=== PATIENT | male | born 1975 | race Two or more races ===

== ENCOUNTER 2019-05-03 20:57 | Emergency (ER) | payer MEDICAID, OTHER ==
[~2019-05-03] VITALS: Ht 182.9 cm; Wt 85.7 kg
--- NOTE | 2019-05-03 21:25 | NUR ---
MIRELA HERNANDEZ WITH A C/O CHRONIC BACK PAIN. 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 DR BARRIENTOS IS AT THE BEDSIDE. PT IS ON THE MONITOR AND CONTINUOUS PULSE OX.
--- NOTE | 2019-05-03 21:55 | NUR ---
DR BARRIENTOS IS AT THE BEDSIDE SPEAKING TO THE PT.
--- NOTE | 2019-05-03 22:00 | NUR ---
PT REMOVED THE BP CUFF AND PULSE OX. PT DOES NOT WANT THEM ON AT THIS TIME.
--- NOTE | 2019-05-03 22:50 | NUR ---
PT WANTS TO LEAVE AMA. PER PT, PT'S MOTHER IS PICKING PT UP.
--- NOTE | 2019-05-03 23:11 | NUR ---
DR BARRIENTOS IS AT THE BEDSIDE SPEAKING TO THE PT. PT AGREED TO RETURN TO THE FACILITY VIA AMBULANCE. PT REC'D ALL D/C PAPERWORD AND RX.
--- NOTE | 2019-05-03 23:20 | NUR ---
PT WAS PLACED ON A BEDPAN AND GIVEN TOILET PAPER.
--- NOTE | 2019-05-03 23:33 | NUR ---
PER ALCIDES, ETA FOR AMBULNACE 1HR
--- NOTE | 2019-05-03 23:39 | NUR ---
BEDPAN WAS REMOVED AND PT WAS CLEANED. NEW CHUX WAS APPLIED AND PT COVERED WITH A SHEET.
--- NOTE | 2019-05-04 00:38 | NUR ---
PT APPEARS TO BE RESTING COMFORTABLY WITH NO S/S OF PAIN OR DISTRESS.
--- NOTE | 2019-05-04 00:49 | NUR ---
CALLING [facility] TO LET THEM KNOW THAT THE PT IS RETURNING. FACILITY PUT ME ON HOLD AND THEN HUNG UP ON ME.
--- NOTE | 2019-05-04 00:53 | NUR ---
CHARGE NURSE CALLED THE FACILITY TO SPEAK TO THE NURSE. CHARGE NURSE SPOKE TO
--- NOTE | 2019-05-04 00:54 | NUR ---
CALLED [facility], SPOKE WITH NONA AND INFORMED PT WILL RETURN TO FACILITY
--- NOTE | 2019-05-04 01:00 | NUR ---
Patient discharged to home in stable condition. Written and verbal after care instructions given. Patient verbalizes understanding of instruction AND RX. PT LEFT VIA AMBULANCE.
[2019-05-04 01:08] VITALS: BP 133/78
== END 2019-05-04 01:09 | disposition home or self-care (01) ==
LOC: ER 21:00
DX: M54.9 Dorsalgia, unspecified (principal); G89.29 Other chronic pain